=== PATIENT | female | born 1990 | race African-American/Black ===

== ENCOUNTER 2017-12-12 01:14 | Emergency (ER) | payer OTHER ==
[~2017-12-12] VITALS: Ht 170.2 cm; Wt 72.6 kg
[2017-12-12 03:28] LABS: URINE BILIRUBIN NEGATIVE (Negative); URINE BLOOD NEGATIVE (Negative); URINE CLARITY CLEAR; URINE COLOR YELLOW; URINE GLUCOSE-RANDOM* NEGATIVE (Negative); URINE KETONES TRACE (Negative); URINE NITRITE-REFLEX NEGATIVE (Negative); URINE PROTEIN (DIPSTICK) 1+ (Negative); URINE SPECIFIC GRAVITY >= 1.030 (1.005-1.035)
[2017-12-12 03:29] LABS: URINE LEUKOCYTES-REFLEX 1+ (Negative)
[2017-12-12 03:52] LABS: CASTS None Seen /LPF (None Seen); CRYSTALS None Seen /LPF (None Seen); MUCUS >6 Heavy strn/LPF (None Seen); SQUAMOUS >10 Many /LPF (0-3); URINE RBC 0-2 Rare /HPF (0-2); URINE WBC-REFLEX 6-15 Few /HPF (0-5)
[2017-12-12] MEDS ORDERED: KEFLEX500 M1 PO (04:19)
[2017-12-12 04:39] VITALS: BP 122/63
[2017-12-13 14:08] LABS: NEISSERIA GONORRHEA-PCR Negative (Negative)
== END 2017-12-12 04:42 | disposition home or self-care (01) ==
LOC: ER 01:14
PROVIDERS: Emergency Medicine
DX: O23.42 Unspecified infection of urinary tract in pregnancy, second trimester (principal); Z3A.25 25 weeks gestation of pregnancy